=== PATIENT | male | born 1945 | race Caucasian/White ===

== ENCOUNTER 2016-10-17 05:50 | Inpatient (IN) | payer OTHER, MEDICARE ==
[2016-10-17] VITALS (10 sets, daily range): BP systolic 109–155; BP diastolic 60–82; PULSE 43–76; RESP 14–20; TEMP 97.2–98.6; O2SAT 93–99
[~2016-10-17] VITALS: Ht 180.3 cm; Wt 94.3 kg
[~2016-10-17 05:50] MED LIST: AEROMIS4 INH; ALBU0.086 INH; ALBU0.086 NEB; ALBU1AER INH; DULE200A PO; IPRA0.02 NEB; LISI-363 PO; MONT10 PO; PRED20 PO; SIMV20 PO; SPIRCAP INH
[2016-10-17] MEDS ORDERED: SODIUM CHLOR 0.9% 1000 ML INJ 1,000 ML IV SCH (06:17)
--- NOTE | 2016-10-17 06:25 | PD ---
HPI Chief Complaint: Abdominal Pain Time Seen by Provider: 06:08 Travel History International Travel<30 days: No Contact w/Intl Traveler<30days: No Traveled to known affect area: No History of Present Illness HPI 71-year-old male with history of hypertension, hypercholesterolemia, here for evaluation of epigastric and right upper quadrant abdominal pain. Symptoms started about 2 hours ago and woke him up from sleep. Patient rates the pain as sharp, constant, progressively worsening. Pain is currently 9 out of 10, worse with movement and palpation. He reports feeling nauseous but has not yet vomited. He has also had some chills. Patient points history of diverticulitis and nephrolithiasis in the past, however the symptoms feel different. He denies history of abdominal surgeries. He drinks alcohol occasionally. Denies any known history of coronary artery disease. Pain does not radiate up into his chest. PFSH Past Medical History Hx Anticoagulant Therapy: No Asthma: Yes Cardiovascular Problems: Yes (hx htn) High Cholesterol: Yes Diminished Hearing: No Hypertension: Yes Respiratory: Yes (asthma) Immunizations Current: Yes Social History Alcohol Use: Yes (ONCE PER WK) Tobacco Use: No Substance Use: No Allergies-Medications (Allergen,Severity, Reaction): Coded Allergies: aspirin (Verified Adverse Reaction, Unknown, Wheezing, 10/17/16) "CAN MAKE MY ASTHMA WORSE" Reported Meds & Prescriptions Reported Meds & Active Scripts Active Reported [place]-3 Fish Oil/Vitamin (Fish Oil-Cholecalciferol) 1,000-1,000 Mg Cap 1 Cap PO DAILY Albuterol Neb (Albuterol Sulfate) 2.5 Mg/3 Ml Neb 2.5 Mg NEB Q4HR NEB While awake Proair Hfa 8.5 GM Inh (Albuterol Sulfate) 90 Mcg/Act Aer 2 Puff INH Q4-6H PRN 108 mcg/actuation Claritin (Loratadine) 10 Mg Cap 10 Mg PO DAILY Zocor (Simvastatin) 20 Mg Tab 20 Mg PO HS Lisinopril 20 Mg Tab 20 Mg PO DAILY Dulera 120 Act Inh (Mometasone-Formoterol 120 Act Inh) 200-5 Mcg/Act Inh 2 Puff INH BID Review of Systems Except as stated in HPI: all other systems reviewed are Neg Physical Exam Narrative GENERAL: Well-developed, well-nourished, mild distress secondary to pain. SKIN: Focused skin assessment warm/dry. No rash. HEAD: Atraumatic. Normocephalic. EYES: Pupils equal and round. No scleral icterus. No injection or drainage. ENT: Mucous membranes pink and moist. NECK: Trachea midline. No JVD. CARDIOVASCULAR: Regular rate and rhythm. RESPIRATORY: No accessory muscle use. Clear to auscultation. Breath sounds equal bilaterally. GASTROINTESTINAL: Abdomen soft, nondistended. Moderate right upper quadrant and epigastric tenderness with Saldaña sign. No peritoneal signs. Rest of abdomen is soft and nontender. Normal bowel sounds. No hernias. MUSCULOSKELETAL: No obvious deformities. No clubbing. No cyanosis. No edema. NEUROLOGICAL: Awake and alert. No obvious cranial nerve deficits. Motor grossly within normal limits. Normal speech. PSYCHIATRIC: Appropriate mood and affect; insight and judgment normal. Data Data Last Documented VS Vital Signs Date Time Temp Pulse Resp B/P (MAP) Pulse Ox O2 Delivery O2 Flow Rate FiO2 10/17/16 07:04 40 10/17/16 06:53 118/60 (79) 95 Room Air 10/17/16 05:52 14 Orders Orders Complete Blood Count With Diff (10/17/16 06:17) Comprehensive Metabolic Panel (10/17/16 06:17) Lipase (10/17/16 06:17) Lactic Acid (10/17/16 06:17) Prothrombin Time / Inr (Pt) (10/17/16 06:17) Act Partial Throm Time (Ptt) (10/17/16 06:17) Urinalysis - C+S If Indicated (10/17/16 06:17) Us Abdomen Gallbladder (10/17/16 ) Iv Access Insert/Monitor (10/17/16 06:17) Ecg Monitoring (10/17/16 06:17) Oximetry (10/17/16 06:17) Morphine Inj (Morphine Inj) (10/17/16 06:30) Ondansetron Inj (Zofran Inj) (10/17/16 06:30) Sodium Chlor 0.9% 1000 Ml Inj (Ns 1000 M (10/17/16 06:17) Sodium Chloride 0.9% Flush (Ns Flush) (10/17/16 06:30) Ckmb (Isoenzyme) Profile (10/17/16 06:20) Troponin I (10/17/16 06:20) CKMB (10/17/16 06:30) CKMB% (10/17/16 06:30) Labs Laboratory Tests Test 10/17/16 06:30 White Blood Count 11.5 TH/MM3 Red Blood Count 5.07 MIL/MM3 Hemoglobin 15.3 GM/DL Hematocrit 45.8 % Mean Corpuscular Volume 90.3 FL Mean Corpuscular Hemoglobin 30.1 PG Mean Corpuscular Hemoglobin Concent 33.4 % Red Cell Distribution Width 12.6 % Platelet Count 235 TH/MM3 Mean Platelet Volume 7.3 FL Neutrophils (%) (Auto) 60.2 % Lymphocytes (%) (Auto) 23.4 % Monocytes (%) (Auto) 8.7 % Eosinophils (%) (Auto) 6.5 % Basophils (%) (Auto) 1.2 % Neutrophils # (Auto) 7.0 TH/MM3 Lymphocytes # (Auto) 2.7 TH/MM3 Monocytes # (Auto) 1.0 TH/MM3 Eosinophils # (Auto) 0.7 TH/MM3 Basophils # (Auto) 0.1 TH/MM3 CBC Comment AUTO DIFF Prothrombin Time 10.7 SEC Prothromb Time International Ratio 1.0 RATIO Activated Partial Thromboplast Time 24.5 SEC Lactic Acid Level 1.9 mmol/L Total Creatine Kinase 135 U/L Troponin I 0.05 NG/ML MDM Medical Decision Making Medical Screen Exam Complete: Yes Emergency Medical Condition: Yes Interpretation(s) EKG: Sinus bradycardia, rate 41, leftward axis, normal intervals, no acute ischemic abnormality. Differential Diagnosis Cholelithiasis, cholecystitis, cholangitis, pancreatitis, peptic ulcer disease, gastritis Narrative Course Bedside transabdominal ultrasound was performed by me shortly after the patient arrived to the emergency department and shows a large stone in the gallbladder neck. Formal ultrasound will be ordered. EKG is significant for sinus bradycardia with a rate of 41. Patient denies history of bradycardia. Initial vital signs show heart rate 43, blood pressure 147/70, pulse ox 97% on room air. At approximately 7:00 AM at the end of my shift the patient was signed out to Dr. Rogers to follow-up with labs, imaging results, and formulate a disposition. Michael Argueta MD Oct 17, 2016 06:25
[2016-10-17] MEDS ORDERED: ONDANSETRON HCL 4 MG/2 ML VIAL IVP ONE (06:30)
[2016-10-17] MEDS ORDERED: SODIUM CHLORIDE 0.9% FLUSH 10 ML FLUSH IV FLUSH PRN ×2 (06:30→09:15)
[2016-10-17] MEDS ORDERED: MORPHINE SULFATE 4 MG/ML INJ IV PUSH ONE ×2 (06:30→08:00)
[2016-10-17 06:38] LABS: BASOPHIL # 0.1 TH/MM3 (0-0.2); BASOPHIL % 1.2 % (0.0-2.0); EOSINOPHIL # 0.7 TH/MM3 (0-0.4); EOSINOPHIL % 6.5 % (0.0-4.0); HEMATOCRIT 45.8 % (39.0-51.0); LYMPH % 23.4 % (9.0-44.0); LYMPHOCYTE # 2.7 TH/MM3 (1.0-4.8); MEAN CELL VOLUME 90.3 FL (80.0-100.0); MEAN CORPUSCULAR HEMOGLOBIN 30.1 PG (27.0-34.0); MEAN CORPUSCULAR HGB CONC 33.4 % (32.0-36.0); MONO % 8.7 % (0.0-8.0); NEUT % 60.2 % (16.0-70.0); PLATELET COUNT 235 TH/MM3 (150-450); RED BLOOD COUNT 5.07 MIL/MM3 (4.50-5.90); RED CELL DISTRIBUTION WIDTH 12.6 % (11.6-17.2); WHITE BLOOD COUNT 11.5 TH/MM3 (4.0-11.0)
[2016-10-17 06:39] LABS: HEMO FLAGS AUTO DIFF
[2016-10-17] MEDS ORDERED: ZOCO20TA PO (06:46)
[2016-10-17] MEDS ORDERED: CLAR10CA3 PO (06:46)
[2016-10-17] MEDS ORDERED: ALBUAER3 INH (06:46)
[2016-10-17] MEDS ORDERED: OMEGCAP PO (06:46)
[2016-10-17] MEDS ORDERED: DULE200A INH (06:46)
[2016-10-17] MEDS ORDERED: LISI-515 PO (06:46)
[2016-10-17] MEDS ORDERED: ALBU0.08 NEB (06:46)
[2016-10-17 06:55] LABS: APTT (PATIENT) 24.5 SEC (24.3-30.1); PROTHROMBIN TIME - PATIENT 10.7 SEC (9.8-11.6)
[2016-10-17 07:00] LABS: CREATINE KINASE 135 U/L (39-308)
[2016-10-17 07:11] LABS: ALKALINE PHOSPHATASE 52 U/L (45-117); BLOOD UREA NITROGEN 20 MG/DL (7-18); GLOMERULAR FILTRATION RATE 60 ML/MIN (>89)
[2016-10-17 07:12] LABS: ALT (GPT) 23 U/L (12-78); ANION GAP 9 MEQ/L (5-15); AST (GOT) 16 U/L (15-37); BICARBONATE 26.1 MEQ/L (21.0-32.0); CHLORIDE 104 MEQ/L (98-107); CKMB 3.1 NG/ML (0.5-3.6); POTASSIUM 3.7 MEQ/L (3.5-5.1); SODIUM (NA) 139 MEQ/L (136-145); TOTAL BILIRUBIN ADULT 0.5 MG/DL (0.2-1.0)
[2016-10-17 07:25] LABS: SCAN/DIFF AUTO DIFF CONFIRMED
--- NOTE | 2016-10-17 08:36 | RADRPT ---
EXAM DATE/TIME: 10/17/2016 07:21 [place] COMPARISON: No previous studies available for comparison. INDICATIONS : Right upper quadrant pain. MEDICAL HISTORY : Hypertension. Hypercholesterolemia. Asthma. Pneumonia. Diverticulitis. Kidney stones. Skin cancer. SURGICAL HISTORY : Tonsillectomy. Schrapnel removed from legs. ENCOUNTER: Initial ACUITY: 1 day PAIN SCORE: 8/10 LOCATION: Right upper quadrant MEASUREMENTS: LIVER: 16.9 cm length COMMON DUCT: 3 mm RIGHT KIDNEY: 12.0 x 4.6 x 6.5 cm FINDINGS: The wall of the gallbladder is mildly thickened. No pericholecystic fluid or sonographic Saldaña sign is noted. There is a large shadowing echogenic focus within the gallbladder lumen consistent with g allbladder stone. The findings raise the possibility of cholecystitis. Clinical correlation is bhavna mmended. A hepatobiliary scan may be helpful to rule out cystic duct obstruction if clinically indic ated. The liver is mildly enlarged. No focal hepatic mass is noted. No biliary ductal dilatation i s noted. There is hepatopetal flow within the portal vein. The common bile duct is unremarkable. T here is poor visualization of the pancreas due to shadowing bowel gas. The right kidney is unremarka ble without hydronephrosis or solid mass. CONCLUSION: 1. Thick-walled, stone-containing gallbladder. If there is clinical concern for acute cholecystitis a hepatobiliary scan may be helpful to confirm cystic duct obstruction. 2. Mild hepatomegaly. 3. Poor visualization of the pancreas due to shadowing bowel gas. Nathaniel Tolentino MD on October 17, 2016 at 8:15 Board Certified Radiologist. This report was verified electronically.
[2016-10-17] MEDS ORDERED: PIPERACIL-TAZO 3.375 GM PREMIX 50 ML IV ONE (09:00)
[2016-10-17] MEDS: SODIUM CHLOR 0.9% 1000 ML INJ 1,000 ML IV SCH ×2 (09:03→18:09)
[2016-10-17] MEDS ORDERED: MAGNESIUM HYDROXIDE SUSP 30 ML CUP PO PRN (09:15)
[2016-10-17] MEDS ORDERED: LACTULOSE SYRUP 20 GM/30 ML CUP PO PRN (09:15)
[2016-10-17] MEDS ORDERED: BISACODYL 10 MG SUPP RECTAL PRN (09:15)
[2016-10-17] MEDS ORDERED: ACETAMINOPHEN 325 MG TAB PO PRN (09:15)
[2016-10-17] MEDS ORDERED: SENNOSIDES 8.6 MG TAB PO PRN (09:15)
[2016-10-17] MEDS ORDERED: NALOXONE HCL 0.4 MG/ML AMP IV PRN (09:15)
[2016-10-17] MEDS ORDERED: ACETAMINOPHEN/HYDROcodone 325 MG/5 MG TAB PO PRN (09:15)
[2016-10-17] MEDS ORDERED: MORPHINE SULFATE 4 MG/ML INJ IV PRN (09:15)
[2016-10-17] MEDS: MORPHINE SULFATE 4 MG/ML INJ IV PRN ×3 (10:37→23:55)
[2016-10-17] MEDS ORDERED: LACTATED RINGER'S 1000 ML INJ 1,000 ML IV ONE (12:00)
[2016-10-17] MEDS ORDERED: NEOSTIGMINE 3 MG/3 ML SYR IV ONE (12:00)
[2016-10-17] MEDS ORDERED: PROPOFOL 200 MG/20 ML AMP IV ONE (12:00)
[2016-10-17] MEDS ORDERED: BUPIVACAINE HCL PF 0.25% 30 ML VIAL ONE (13:05)
[2016-10-17] MEDS ORDERED: BUPIVACAINE/EPINEPHRINE 0.5% PF 10 ML VIAL ONE ×2 (13:08→13:10)
[2016-10-17] MEDS ORDERED: MIDAZOLAM HCL 2 MG/2 ML VIAL ONE (13:18)
[2016-10-17] MEDS ORDERED: FAMOTIDINE 20 MG/2 ML VIAL ONE (13:18)
[2016-10-17 13:20] LABS: BLOOD, URINE SMALL (NEG); GLUCOSE,URINE NEG (NEG); KETONE, URINE NEG (NEG); NITRITE,URINE NEG (NEG); PH, URINE 5.5 (5.0-8.5)
[2016-10-17 13:31] LABS: COMMENT (UR) CULT NOT INDICATED; CULTURE IF INDICATED CULT NOT INDICATED; METHOD OF COLLECTION CLEAN CATCH; SQUAMOUS EPITHELIAL CELL URINE 0-5 /hpf (0-5); URINE COLOR YELLOW (YELLW/STRAW)
[2016-10-17] MEDS ORDERED: fentaNYL CITRATE 250 MCG/5 ML AMP ONE (13:32)
[2016-10-17] MEDS ORDERED: ceFAZolin 2 GM PREMIX 50 ML ONE (13:38)
[2016-10-17] MEDS ORDERED: LACTATED RINGER'S 1000 ML IV PRN (13:45)
[2016-10-17] MEDS ORDERED: SODIUM CHLORID 0.9% 500 ML IV PRN (13:45)
[2016-10-17] MEDS ORDERED: CHLORHEXIDINE GLUCONATE 2 % 1 PACK (2 CLOTHS) TOPICAL PRN (13:45)
[2016-10-17] MEDS ORDERED: METOPROLOL TARTRATE 25 MG TAB PO PRN (13:45)
[2016-10-17] MEDS ORDERED: POVIDONE IODINE 5% (ANTISEPSIS KIT) 4 APPLICATIONS EACH NARE PRN (13:45)
[2016-10-17] MEDS ORDERED: INSULIN HUMAN REGULAR 1,000 UNITS/10 ML VIAL SQ PRN (13:45)
--- NOTE | 2016-10-17 13:49 | PD ---
Data Data Last Documented VS Vital Signs Date Time Temp Pulse Resp B/P (MAP) Pulse Ox O2 Delivery O2 Flow Rate FiO2 10/17/16 08:30 55 18 115/68 (84) 98 Room Air 10/17/16 07:57 98.0 Orders Orders Complete Blood Count With Diff (10/17/16 06:17) Comprehensive Metabolic Panel (10/17/16 06:17) Lipase (10/17/16 06:17) Lactic Acid (10/17/16 06:17) Prothrombin Time / Inr (Pt) (10/17/16 06:17) Act Partial Throm Time (Ptt) (10/17/16 06:17) Urinalysis - C+S If Indicated (10/17/16 06:17) Us Abdomen Gallbladder (10/17/16 ) Iv Access Insert/Monitor (10/17/16 06:17) Ecg Monitoring (10/17/16 06:17) Oximetry (10/17/16 06:17) Morphine Inj (Morphine Inj) (10/17/16 06:30) Ondansetron Inj (Zofran Inj) (10/17/16 06:30) Sodium Chlor 0.9% 1000 Ml Inj (Ns 1000 M (10/17/16 06:17) Sodium Chloride 0.9% Flush (Ns Flush) (10/17/16 06:30) Ckmb (Isoenzyme) Profile (10/17/16 06:20) Troponin I (10/17/16 06:20) CKMB (10/17/16 06:30) CKMB% (10/17/16 06:30) Morphine Inj (Morphine Inj) (10/17/16 08:00) Consult Sukhdev Nfs (10/17/16 ) Piperacil-Tazo 3.375 Gm Premix (Zosyn 3. (10/17/16 09:00) Admit Order (Ed Use Only) (10/17/16 09:02) Labs Laboratory Tests Test 10/17/16 06:30 White Blood Count 11.5 TH/MM3 Red Blood Count 5.07 MIL/MM3 Hemoglobin 15.3 GM/DL Hematocrit 45.8 % Mean Corpuscular Volume 90.3 FL Mean Corpuscular Hemoglobin 30.1 PG Mean Corpuscular Hemoglobin Concent 33.4 % Red Cell Distribution Width 12.6 % Platelet Count 235 TH/MM3 Mean Platelet Volume 7.3 FL Neutrophils (%) (Auto) 60.2 % Lymphocytes (%) (Auto) 23.4 % Monocytes (%) (Auto) 8.7 % Eosinophils (%) (Auto) 6.5 % Basophils (%) (Auto) 1.2 % Neutrophils # (Auto) 7.0 TH/MM3 Lymphocytes # (Auto) 2.7 TH/MM3 Monocytes # (Auto) 1.0 TH/MM3 Eosinophils # (Auto) 0.7 TH/MM3 Basophils # (Auto) 0.1 TH/MM3 CBC Comment AUTO DIFF Differential Comment AUTO DIFF CONFIRMED Prothrombin Time 10.7 SEC Prothromb Time International Ratio 1.0 RATIO Activated Partial Thromboplast Time 24.5 SEC Blood Urea Nitrogen 20 MG/DL Creatinine 1.20 MG/DL Random Glucose 150 MG/DL Total Protein 6.8 GM/DL Albumin 3.5 GM/DL Calcium Level 8.7 MG/DL Alkaline Phosphatase 52 U/L Aspartate Amino Transf (AST/SGOT) 16 U/L Alanine Aminotransferase (ALT/SGPT) 23 U/L Total Bilirubin 0.5 MG/DL Sodium Level 139 MEQ/L Potassium Level 3.7 MEQ/L Chloride Level 104 MEQ/L Carbon Dioxide Level 26.1 MEQ/L Anion Gap 9 MEQ/L Estimat Glomerular Filtration Rate 60 ML/MIN Lactic Acid Level 1.9 mmol/L Total Creatine Kinase 135 U/L Creatine Kinase MB 3.1 NG/ML Troponin I 0.05 NG/ML Lipase 239 U/L MDM Supervised Visit with MARISOL: No Narrative Course I took over care of this patient from Dr. Argueta. The patient has had right upper quadrant abdominal pain that started last evening and persisting throughout the night. His pain is intractable despite 8 mg of IV morphine. Ultrasound demonstrates a stone in the gallbladder neck. I suspect the patient has cholecystitis based on his exam. He will be admitted for surgery later today. The case was discussed with Dr. Kapoor. Physician Communication Physician Communication Discussed with Dr. Kapoor Diagnosis Primary Impression: Cholecystitis Admitting Information Admitting Physician Requests: Observation Judi Rogers MD Oct 17, 2016 13:49
--- NOTE | 2016-10-17 13:57 | HHI.PR ---
Immediate Post Op Note Procedure Date: Oct 17, 2016 Pre Op Diagnosis: acute cholecysitits with cholelithiasis, umbilical hernia Post Op Diagnosis: same Surgeon: Anil Kapoor MD Die Polisher(s): see or sheet Procedure: lap ashkan, primary umbilical hernia repair Findings: distended gallbladder Complications: none Specimen(s) removed: gallbladder Estimated blood loss: 5cc Anesthesia: General Drains: None Patient to: PACU Patient Condition: Good Anil Kapoor MD Oct 17, 2016 13:57
[2016-10-17] MEDS ORDERED: ceFAZolin 2 GM PREMIX 50 ML IV ONE (14:15)
--- NOTE | 2016-10-17 14:41 | MB ---
cc: LUCY LOWE MD DATE OF CONSULTATION 10/17/2016 CHIEF COMPLAINT Right upper quadrant abdominal pain. HISTORY OF PRESENT ILLNESS The patient is a 71-year-old male who presents with several medical issues and acute onset of right upper quadrant abdominal pain. He stated the pain started since midnight and woke him up from sleep and was sharp, constant and got progressively worse. The patient describes the pain as a 9/10. Currently it is 8/10, some improvement with pain medication. He did have associated nausea, but denied vomiting. Denied any fevers, but complains of chills. He never had pain quite like this before. He came to the emergency department. Further evaluation including gallbladder ultrasound showing gallstones with gallbladder wall thickening and leukocytosis. Surgery was consulted for further evaluation. PAST MEDICAL HISTORY 1. Hypertension 2. Asthma 3. Hyperlipidemia 4. Kidney stones 5. Diverticulitis PAST SURGICAL HISTORY The patient denies any surgeries. SOCIAL HISTORY Occasional ETOH, but denies smoking or IVDA. ALLERGIES ASPIRIN MEDICATIONS See EMR. FAMILY HISTORY Denies diabetes or hypertension. REVIEW OF SYSTEMS GENERAL: Complains of chills. Denies fevers. HEENT: Denies eye pain, ear pain or scleral icterus. NECK: Denies swelling or pain. LUNGS: Denies cough or wheeze. HEART: Denies chest pain or palpitations. ABDOMEN: Complains of nausea, denies vomiting. Complained of abdominal pain. : Denies dysuria or hematuria. ENDOCRINE: Denies polyuria or polydipsia. MUSCULOSKELETAL: Denies arthralgias or myalgias. NEUROLOGIC: Denies numbness or tingling. PHYSICAL EXAMINATION VITAL SIGNS: Temperature 98.4, pulse 40, respirations 14, blood pressure 118/60, saturation 95% on room air. HEENT: Pupils equal round reactive. Normocephalic. Atraumatic NECK: Supple. Trachea midline. No JVD. HEART: S1-S2 regular. LUNGS: Clear to auscultation, bilateral expansion. ABDOMEN: Soft, positive tenderness to palpation in the right upper quadrant. No rebound. Positive Saldaña's sign. MUSCULOSKELETAL: No cyanosis, warm, well-perfused. NEUROLOGIC: 5/5 motor all extremities. Awake and alert site. PSYCH: Good mood, appropriate affect. INTEGUMENT: No obvious masses or lesions. LABORATORY AND DIAGNOSTIC DATA WBC is 11.5, hemoglobin 15.3, hematocrit 45.8, platelets 235. Sodium of 139, potassium 3.7, chloride 104, BUN of 20, creatinine 1.2, glucose 150, AST 16, ALT 23, alkaline phos 52, troponin 0.05, lipase 239. Ultrasound reviewed by myself showing thickened gallbladder wall with multiple gallstones. ASSESSMENT The patient is a 71-year-old male who presents with right upper quadrant pain, acute cholecystitis, and umbilical hernia. PLAN After a full clinical, radiologic and laboratory workup, the patient has the above-named issues including acute onset of cholecystitis with cholelithiasis and umbilical hernia. At this point, discussed with the patient regarding laparoscopic cholecystectomy. Discussed in detail. The patient stated understanding, and agree. We will plan to take the patient to the OR for this. The patient also has a small umbilical hernia which full discussion regarding primary repair of this hernia and will do at the time of cholecystectomy. Again, the patient agrees with this plan. MD CLARA March/TAMRA /1:49 PM /2:29 PM
[2016-10-17] MEDS ORDERED: ENALAPRILAT 1.25 MG/ML VIAL ONE (15:46)
[2016-10-17] MEDS ORDERED: HYDROmorphone HCL PF 1 MG/ML VIAL ONE (16:11)
--- NOTE | 2016-10-17 17:41 | HHI.HP ---
[facility] Service [facility] Primary Care Physician Jayson Rudd MD Admission Diagnosis cholecystitis Diagnoses: Travel History International Travel<30 Days: No Contact w/Intl Traveler <30 Da: No Traveled to Known Affected Are: No History of Present Illness This is a pleasant 71 year-old female with past medical history of hypertension and asthma who presented to the ER after being awoken from sleep with severe right upper quadrant abdominal pain. The pain got progressively worse. No provocative factors. Pain medicine did alleviate the pain. He had nausea but no vomiting. In the emergency department gallbladder ultrasound showed a thickened gallbladder wall with a gallstone and he had leukocytosis. Gen. surgery was contacted and took him for laparoscopic cholecystectomy this afternoon. Currently the patient is resting in bed, states the right upper quadrant pain has resolved and now he just has some minimal pain around the laparoscopic incisions. History obtained from discussing with the patient and his at bedside. 10 point review systems otherwise negative. Past Family Social History Past Medical History Asthma, controlled Hyperlipidemia Hypertension Reported Medications Allergies Coded Allergies Type Severity Reaction Last Updated Verified aspirin Adverse Reaction Unknown Wheezing 10/17/16 Yes Active Scripts Medications Dose Route/Sig Max Daily Dose Days Date Category Dose Instructions [place]-3 Fish Oil/Vitamin (Fish Oil-Cholecalciferol) 1,000-1,000 Mg Cap 1 Cap PO DAILY 10/17/16 Reported Albuterol Neb (Albuterol Sulfate) 2.5 Mg/3 Ml Neb 2.5 Mg NEB Q4HR NEB 10/17/16 Reported While awake Proair Hfa 8.5 GM Inh (Albuterol Sulfate) 90 Mcg/Act Aer 2 Puff INH Q4-6H PRN 10/17/16 Reported 108 mcg/actuation Claritin (Loratadine) 10 Mg Cap 10 Mg PO DAILY 10/17/16 Reported Zocor (Simvastatin) 20 Mg Tab 20 Mg PO HS 10/17/16 Reported Lisinopril 20 Mg Tab 20 Mg PO DAILY 10/17/16 Reported Dulera 120 Act Inh (Mometasone-Formoterol 120 Act Inh) 200-5 Mcg/Act Inh 2 Puff INH BID 10/17/16 Reported Allergies: Coded Allergies: aspirin (Verified Adverse Reaction, Unknown, Wheezing, 10/17/16) "CAN MAKE MY ASTHMA WORSE" Family History His daughter had cholecystectomy at age of 20 Social History Rare alcohol use. No tobacco use. Physical Exam Vital Signs Vital Signs Date Time Temp Pulse Resp B/P (MAP) Pulse Ox O2 Delivery O2 Flow Rate FiO2 10/17/16 16:36 98.7 74 15 138/79 (98) 96 10/17/16 16:15 69 16 144/85 (104) 96 Nasal Cannula 3 10/17/16 16:00 66 16 161/91 (114) 97 Nasal Cannula 3 10/17/16 15:45 100.2 75 14 165/90 (115) 95 Nasal Cannula 3 10/17/16 13:20 97.2 47 20 155/87 (109) 97 10/17/16 11:12 16 10/17/16 10:30 97.2 47 20 155/81 (105) 97 10/17/16 10:19 10/17/16 09:56 43 18 119/78 (92) 98 Room Air 10/17/16 08:30 55 18 115/68 (84) 98 Room Air 10/17/16 08:22 18 10/17/16 07:57 98.0 45 18 109/61 (77) 99 Room Air 10/17/16 07:07 44 18 117/64 (81) 96 Room Air 10/17/16 07:04 40 10/17/16 06:59 38 10/17/16 06:53 44 118/60 (79) 95 Room Air 10/17/16 05:52 43 14 147/70 (95) 97 Physical Exam GENERAL: Well-nourished, well-developed patient. SKIN: Warm and dry. HEAD: Normocephalic. EYES: No scleral icterus. No injection or drainage. NECK: Supple, trachea midline. No JVD or lymphadenopathy. CARDIOVASCULAR: Regular rate and rhythm without murmurs, gallops, or rubs. RESPIRATORY: Breath sounds equal bilaterally. No accessory muscle use. GASTROINTESTINAL: Abdomen soft. EXTREMITIES: No cyanosis, or edema. NEUROLOGICAL: Awake, alert, and oriented x 3. Non-focal. Laboratory Laboratory Tests Test 10/17/16 06:30 10/17/16 13:05 White Blood Count 11.5 Red Blood Count 5.07 Hemoglobin 15.3 Hematocrit 45.8 Mean Corpuscular Volume 90.3 Mean Corpuscular Hemoglobin 30.1 Mean Corpuscular Hemoglobin Concent 33.4 Red Cell Distribution Width 12.6 Platelet Count 235 Mean Platelet Volume 7.3 Neutrophils (%) (Auto) 60.2 Lymphocytes (%) (Auto) 23.4 Monocytes (%) (Auto) 8.7 Eosinophils (%) (Auto) 6.5 Basophils (%) (Auto) 1.2 Neutrophils # (Auto) 7.0 Lymphocytes # (Auto) 2.7 Monocytes # (Auto) 1.0 Eosinophils # (Auto) 0.7 Basophils # (Auto) 0.1 CBC Comment AUTO DIFF Differential Comment AUTO DIFF CONFIRMED Prothrombin Time 10.7 Prothromb Time International Ratio 1.0 Activated Partial Thromboplast Time 24.5 Blood Urea Nitrogen 20 Creatinine 1.20 Random Glucose 150 Total Protein 6.8 Albumin 3.5 Calcium Level 8.7 Alkaline Phosphatase 52 Aspartate Amino Transf (AST/SGOT) 16 Alanine Aminotransferase (ALT/SGPT) 23 Total Bilirubin 0.5 Sodium Level 139 Potassium Level 3.7 Chloride Level 104 Carbon Dioxide Level 26.1 Anion Gap 9 Estimat Glomerular Filtration Rate 60 Lactic Acid Level 1.9 Total Creatine Kinase 135 Creatine Kinase MB 3.1 Troponin I 0.05 Lipase 239 Urine Collection Type CLEAN CATCH Urine Color YELLOW Urine Turbidity CLEAR Urine pH 5.5 Urine Specific [place] 1.024 Urine Protein NEG Urine Glucose (UA) NEG Urine Ketones NEG Urine Occult Blood SMALL Urine Nitrite NEG Urine Bilirubin NEG Urine Leukocyte Esterase NEG Urine RBC 4-9 Urine Squamous Epithelial Cells 0-5 Microscopic Urinalysis Comment CULT NOT INDICATED Urine Collection Time 13:05 Result Diagram: 10/17/1630 10/17/16 0630 Imaging Last Impressions Gall Bladder Ultrasound 10/17/16 0000 Signed Impressions: Service Date/Time: Monday, October 17, 2016 07:21 - CONCLUSION: 1. Thick-walled, stone-containing gallbladder. If there is clinical concern for acute cholecystitis a hepatobiliary scan may be helpful to confirm cystic duct obstruction. 2. Mild hepatomegaly. 3. Poor visualization of the pancreas due to shadowing bowel gas. MD Jacy Lesteri VTE Risk Assessment Caprini VTE Risk Assessment: Mod/High Risk (score >= 2) Caprini Risk Assessment Model Point Value = 1 Point Value = 2 Point Value = 3 Point Value = 5 Age 41-60 Minor surgery BMI > 25 kg/m2 Swollen legs Varicose veins or History of unexplained or recurrent spontaneous Oral contraceptives or hormone replacement Sepsis (< 1 month) Serious lung disease, including pneumonia (< 1 month) Abnormal pulmonary function Acute myocardial infarction Congestive heart failure (< 1 month) History of inflammatory bowel disease Medical patient at bed rest Age 61-74 Arthroscopic surgery Major open surgery (> 45 min) Laparoscopic surgery (> 45 min) Malignancy Confined to bed (> 72 hours) Immobilizing plaster cast Central venous access Age >= 75 History of VTE Family history of VTE Factor V Leiden Prothrombin [id number] Lupus anticoagulant Anticardiolipin antibodies Elevated serum homocysteine Heparin-induced thrombocytopenia Other congenital or acquired thrombophilia Stroke (< 1 month) Elective arthroplasty Hip, pelvis, or leg fracture Acute spinal cord injury (< 1 month) Prophylaxis Regimen Total Risk Factor Score Risk Level Prophylaxis Regimen 0-1 Low Early ambulation 2 Moderate Order ONE of the following: *Sequential Compression Device (SCD) *Heparin 5000 units SQ BID 3-4 Higher Order ONE of the following medications: *Heparin 5000 units SQ TID *Enoxaparin/Lovenox 40 mg SQ daily (WT < 150 kg, CrCl > 30 mL/min) *Enoxaparin/Lovenox 30 mg SQ daily (WT < 150 kg, CrCl > 10-29 mL/min) *Enoxaparin/Lovenox 30 mg SQ BID (WT < 150 kg, CrCl > 30 mL/min) AND/OR *Sequential Compression Device (SCD) 5 or more Highest Order ONE of the following medications: *Heparin 5000 units SQ TID (Preferred with Epidurals) *Enoxaparin/Lovenox 40 mg SQ daily (WT < 150 kg, CrCl > 30 mL/min) *Enoxaparin/Lovenox 30 mg SQ daily (WT < 150 kg, CrCl > 10-29 mL/min) *Enoxaparin/Lovenox 30 mg SQ BID (WT < 150 kg, CrCl > 30 mL/min) AND *Sequential Compression Device (SCD) Assessment and Plan Problem List: (1) Cholecystitis ICD Code: K81.9 - Cholecystitis, unspecified Status: Acute Assessment and Plan Acute cholecystitis status post laparoscopic cholecystectomy with Dr. Kapoor today. Continue postop care as per general surgery. Pain control. Asthma, controlled - resume home medications. Hyperlipidemia - resume home medications. Hypertension - resume home medications. DVT prophylaxis with SCDs. Farideh Serra MD Oct 17, 2016 17:41
--- NOTE | 2016-10-17 18:02 | EKG ---
Date Performed: 10/17/2016 Time Performed: 06:14:19 PTAGE: 71 years EKG: SINUS BRADYCARDIA WITH SINUS ARRHYTHMIA Compared to previous tracing, decrease in sinus rat e BORDERLINE ECG PREVIOUS TRACING : 06/27/2014 16.19 DOCTOR: Aidan Mcfarlane Interpretating Date/Time 10/17/2016 18:01:29
[2016-10-17] MEDS: RESP: ALBUTEROL 2.5 MG/3 ML NEB (SCH) NEB (20:02)
[2016-10-17] MEDS: SODIUM CHLORIDE 0.9% FLUSH 10 ML FLUSH IV FLUSH SCH (20:38)
[2016-10-17] MEDS: ACETAMINOPHEN/HYDROcodone 325 MG/7.5 MG TAB PO PRN (20:38)
[2016-10-17] MEDS: DOCUSATE SODIUM 50 MG/SENNA 8.6 MG TAB PO SCH (20:39)
[2016-10-17] MEDS ORDERED: PRAVASTATIN SOD 40 MG TAB PO SCH (21:00)
[2016-10-17] MEDS ORDERED: MOMETASONE FORMOTEROL INH SCH (21:00)
[2016-10-18] VITALS: BP 150/86; PULSE 61; RESP 16; TEMP 98.3; O2SAT 95
[2016-10-18] MEDS: RESP: ALBUTEROL 2.5 MG/3 ML NEB (SCH) NEB ×4 (00:13→11:41)
[2016-10-18 04:00] VITALS: BP 143/83; PULSE 75; RESP 18; TEMP 99.4; O2SAT 92
[2016-10-18] MEDS: MORPHINE SULFATE 4 MG/ML INJ IV PRN (04:26)
[2016-10-18] MEDS: SODIUM CHLOR 0.9% 1000 ML INJ 1,000 ML IV SCH (04:47)
[2016-10-18 06:09] LABS: AUTOMATED NEUTROPHIL # 9.8 TH/MM3 (1.8-7.7); BASOPHIL # 0.1 TH/MM3 (0-0.2); BASOPHIL % 0.9 % (0.0-2.0); EOSINOPHIL # 0.1 TH/MM3 (0-0.4); EOSINOPHIL % 0.7 % (0.0-4.0); HEMATOCRIT 40.2 % (39.0-51.0); HEMO FLAGS DIFF FINAL; LYMPH % 15.2 % (9.0-44.0); MEAN CELL VOLUME 90.9 FL (80.0-100.0); MEAN CORPUSCULAR HEMOGLOBIN 30.4 PG (27.0-34.0); MEAN CORPUSCULAR HGB CONC 33.4 % (32.0-36.0); NEUT % 73.2 % (16.0-70.0); PLATELET COUNT 200 TH/MM3 (150-450); RED BLOOD COUNT 4.42 MIL/MM3 (4.50-5.90); RED CELL DISTRIBUTION WIDTH 13.2 % (11.6-17.2); WHITE BLOOD COUNT 13.3 TH/MM3 (4.0-11.0)
[2016-10-18 06:14] LABS: POTASSIUM 3.5 MEQ/L (3.5-5.1)
[2016-10-18 06:23] LABS: BICARBONATE 25.2 MEQ/L (21.0-32.0)
[2016-10-18] MEDS: ACETAMINOPHEN/HYDROcodone 325 MG/7.5 MG TAB PO PRN ×2 (08:47→13:15)
[2016-10-18] MEDS: DOCUSATE SODIUM 50 MG/SENNA 8.6 MG TAB PO SCH (08:47)
[2016-10-18 08:52] VITALS: BP 147/82; PULSE 76; RESP 15; TEMP 97.5; O2SAT 92
[2016-10-18] MEDS: SODIUM CHLORIDE 0.9% FLUSH 10 ML FLUSH IV FLUSH SCH (09:00)
[2016-10-18] MEDS ORDERED: LISINOPRIL 20 MG TAB PO SCH (09:00)
[2016-10-18] MEDS ORDERED: LORATADINE 10 MG TAB PO SCH (09:00)
[2016-10-18] MEDS ORDERED: NON-FORMULARY DRUG (Fish Oil-Cholecalciferol (Omega-3 Fish Oil/Vitamin) 1 CAP) PO SCH (09:00)
--- NOTE | 2016-10-18 09:37 | MP ---
cc: ANIL KAPOOR MD DATE OF SURGERY 10/17/2016 PREOPERATIVE DIAGNOSIS Acute cholecystitis hydrops, umbilical hernia, scarring of liver POSTOPERATIVE DIAGNOSIS Acute cholecystitis, hydrops, umbilical hernia, scarring of liver PROCEDURE PERFORMED 1. Laparoscopic cholecystectomy 2. primarily Umbilical hernia repair SURGEON Dr. Anil Kapoor [employer]ANGE [employer] See OR sheet ANESTHESIA GETA IV FLUIDS 1300 cc ESTIMATED BLOOD LOSS 15 cc DRAINS None COMPLICATIONS None WOUND CLASSIFICATION Pre-contaminated SPECIMEN Gallbladder FINDINGS Gallbladder hydrops, necrotic gallbladder, distended with very large gallstones. Liver scarring and umbilical hernia. DRAINS None COMPLICATIONS None INDICATION The patient is a 71-year-old male who presented with acute onset of right upper quadrant abdominal pain. The patient also with an umbilical hernia for years. The patient stated the abdominal pain started at midnight and woke him up from sleep and continued to get worse without relief. He had further workup including ultrasound showing a thickened gallbladder wall and a very large gallstones in the gallbladder. Decision was made for laparoscopic cholecystectomy and primary repair of umbilical hernia. DETAILS OF THE PROCEDURE The patient was taken to the operating suite, placed in the supine position. He was prepped and draped in the usual sterile fashion after induction of general endotracheal anesthesia. A brief time-out done stating correct patient, procedure and surgical site. We were all in agreement with this. Attention directed to the umbilicus. A small hernia noted. A superior curvilinear incision was made in order to dissect down to the fascia of the hernia. A 5-mm port was placed through the hernia. Three other ports were placed, one 12 mm epigastric, followed by two 5 mm right subcostal ports. The patient was placed in reverse Trendelenburg and airplaned to the left. The gallbladder fundus was noted to be very dilated, have some patchy necrosis and very distended. The gallbladder was decompressed with an Endo needle concern for a hydrops. Also, the liver was very fatty infiltrated with scarring. The gallbladder fundus was grasped and retracted cephalad. The cystic duct and cystic artery were dissected out with [place] electro Bovie cautery. Two clips were placed proximal and one distal on both the cystic duct and cystic artery and the Endoshears were used to clip the cystic duct and cystic artery. The gallbladder was removed from the gallbladder fossa and placed in an EndoCatch bag using [place] electro Bovie cautery. Minimal bleeding on the liver bed was controlled with electrocautery and Surgicel as well. Suction irrigation used thoroughly in the right upper quadrant. Hemostasis was noted. The abdomen was then desufflated and attention directed to the umbilicus. A curvilinear incision was extended a little bit. A hemostat was used to find the hernia sac and dissected this out and mobilize it. The hernia sac was ligated. The small fatty lipomatous tissue was contained in this. The sac was removed. Good fascial edges were noted. A #1 Prolene was done in a running fashion x2 to reapproximate the good fascial edges. A 0 Vicryl was also used to reapproximate cut subcuticular sutures and the 4-0 Monocryl was used at all port sites in a subcuticular fashion in order for skin. The epigastric port where the gallbladder came out of was also closed with 0 Vicryl to the fascia followed by 4-0 Monocryl. Local anesthetic injected in all ports. The patient tolerated procedure well. No intraoperative complications. The patient was extubated and taken stable to the PACU. MD CLARA March/TAMRA /4:40 PM /9:16 AM MTDD
[2016-10-18 10:00] VITALS: RESP 20
--- NOTE | 2016-10-18 10:29 | HHI.PR ---
Subjective Remarks Patient seen at 9 AM this morning. His abdomen is tender however pain is controlled. No flatus yet. The patient is hungry and would like to eat. He would like to go home today. Objective Vitals Vital Signs Date Time Temp Pulse Resp B/P (MAP) Pulse Ox O2 Delivery O2 Flow Rate FiO2 10/18/16 08:52 97.5 76 15 147/82 (103) 92 10/18/16 04:00 99.4 75 18 143/83 (103) 92 10/18/16 00:00 98.3 61 16 150/86 (107) 95 10/18/16 00:00 16 10/17/16 20:02 94 21 10/17/16 20:00 98.6 76 16 140/81 (100) 93 10/17/16 17:00 97.5 63 18 153/82 (105) 94 10/17/16 16:36 98.7 74 15 138/79 (98) 96 10/17/16 16:15 69 16 144/85 (104) 96 Nasal Cannula 3 10/17/16 16:00 66 16 161/91 (114) 97 Nasal Cannula 3 10/17/16 15:45 100.2 75 14 165/90 (115) 95 Nasal Cannula 3 10/17/16 13:20 97.2 47 20 155/87 (109) 97 10/17/16 10:30 97.2 47 20 155/81 (105) 97 I/O 10/17/16 10/17/16 10/17/16 10/18/16 10/18/16 10/18/16 07:00 15:00 23:00 07:00 15:00 23:00 Intake Total 550 ml 3350 ml 60 ml Output Total 650 ml 520 ml 600 ml Balance -100 ml 2830 ml -540 ml Intake Oral 0 ml 60 ml IV Total 550 ml 2050 ml Other 1300 ml Output Urine Total 650 ml 500 ml 600 ml Estimated Blood Loss 20 ml # Voids 1 2 # Bowel Movements 0 Result Diagram: 10/18/16 0500 10/18/16 0500 Objective Remarks GENERAL: Well-nourished, well-developed patient. SKIN: Warm and dry. HEAD: Normocephalic. EYES: No scleral icterus. No injection or drainage. NECK: Supple, trachea midline. No JVD or lymphadenopathy. CARDIOVASCULAR: Regular rate and rhythm without murmurs, gallops, or rubs. RESPIRATORY: Breath sounds equal bilaterally. No wheezing. No accessory muscle use. GASTROINTESTINAL: Bowel sounds present. Abdomen soft, nondistended. Appropriately tender to palpation around Steri-Strips in the right abdomen and periumbilical 8. EXTREMITIES: No cyanosis, or edema. NEUROLOGICAL: Awake, alert, and oriented x 3. Non-focal. A/P Problem List: (1) Cholecystitis ICD Code: K81.9 - Cholecystitis, unspecified Status: Acute Assessment and Plan Acute cholecystitis status post laparoscopic cholecystectomy with Dr. Kapoor yesterday continue postop care as per general surgery. Pain control. Asthma, controlled -continue home medications. Hyperlipidemia -continue home medications. Hypertension -continue home medications. DVT prophylaxis with SCDs. Discharge Planning Possible discharge home today if cleared by general surgery. Farideh Serra MD Oct 18, 2016 10:29
[2016-10-18] MEDS ORDERED: SENN1TAB PO (10:31)
[2016-10-18] MEDS ORDERED: HYDR-3516 PO (10:31)
--- NOTE | 2016-10-18 11:03 | HHI.PR ---
Subjective Subjective Notes no acute issues, tolerating clears Objective Vitals/I&O Vital Signs Date Time Temp Pulse Resp B/P (MAP) Pulse Ox O2 Delivery O2 Flow Rate FiO2 10/18/16 08:52 97.5 76 15 147/82 (103) 92 10/17/16 20:02 21 10/17/16 16:15 Nasal Cannula 3 Labs Laboratory Tests Test 10/17/16 13:05 10/18/16 05:00 Urine Collection Type CLEAN CATCH Urine Color YELLOW Urine Turbidity CLEAR Urine pH 5.5 Urine Specific Humphrey 1.024 Urine Protein NEG Urine Glucose (UA) NEG Urine Ketones NEG Urine Occult Blood SMALL Urine Nitrite NEG Urine Bilirubin NEG Urine Leukocyte Esterase NEG Urine RBC 4-9 Urine Squamous Epithelial Cells 0-5 Microscopic Urinalysis Comment CULT NOT INDICATED Urine Collection Time 13:05 White Blood Count 13.3 Red Blood Count 4.42 Hemoglobin 13.4 Hematocrit 40.2 Mean Corpuscular Volume 90.9 Mean Corpuscular Hemoglobin 30.4 Mean Corpuscular Hemoglobin Concent 33.4 Red Cell Distribution Width 13.2 Platelet Count 200 Mean Platelet Volume 7.6 Neutrophils (%) (Auto) 73.2 Lymphocytes (%) (Auto) 15.2 Monocytes (%) (Auto) 10.0 Eosinophils (%) (Auto) 0.7 Basophils (%) (Auto) 0.9 Neutrophils # (Auto) 9.8 Lymphocytes # (Auto) 2.0 Monocytes # (Auto) 1.3 Eosinophils # (Auto) 0.1 Basophils # (Auto) 0.1 CBC Comment DIFF FINAL Differential Comment Blood Urea Nitrogen 15 Creatinine 1.10 Random Glucose 120 Calcium Level 8.0 Sodium Level 138 Potassium Level 3.5 Chloride Level 103 Carbon Dioxide Level 25.2 Anion Gap 10 Estimat Glomerular Filtration Rate 66 Cardiovascular: Regular Lungs: Clear Abdomen: Other (soft incision c/d/i ) A/P Assessment and Plan POD 1 Lap ashkan doing well PLAN OOB reg diet pain control po d/c home today Anil Kapoor MD Oct 18, 2016 11:03
== END 2016-10-18 13:33 | disposition home or self-care (01) | DRG 418 ==
LOC: PHED 05:50 → PHEDA 09:03 → OBSVTOIN 09:05 → PH3B 10:24
PROVIDERS: ADMIT Family Medicine; ATTEND Family Medicine
PROC: 0WQF0ZZ Repair Abdominal Wall, Open Approach (ICD-10-PCS; 2016-10-17)
PROC: 0FT44ZZ Resection of Gallbladder, Percutaneous Endoscopic Approach (ICD-10-PCS; principal; 2016-10-17 13:49)
DX: K80.00 Calculus of gallbladder with acute cholecystitis without obstruction (principal); K82.1 Hydrops of gallbladder; I10 Essential (primary) hypertension; K42.9 Umbilical hernia without obstruction or gangrene; J45.909 Unspecified asthma, uncomplicated; E78.5 Hyperlipidemia, unspecified
CPT/HCPCS: 76705; 80048; 80053; 81001; 82550; 82552; 83605; 83690; 84484; 85025; 85610; 85730; 88304; 93005; 94640; 94664; 96361; 96374; 96375; 96376; J0690; J1170; J2250; J2270; J2405; J2543; J2710; J3010; J7030; J7120; J7613